=== PATIENT | male | born 1980 | race Two or more races ===

== ENCOUNTER 2018-12-24 03:49 | Inpatient (IN) | payer MEDICAID, OTHER ==
[~2018-12-24] VITALS: Ht 152.4 cm; Wt 74.8 kg
[~2018-12-24 03:49] MED LIST: OMEPRAZOLE
[2018-12-24 04:12] LABS: Basophils # (auto) 0.1 uL; Basophils % (auto) 0.3 % (0.0-2.0); Eosinophils # (auto) 0 uL; Eosinophils % (auto) 0.1 % (0.0-7.0); Hematocrit 50.6 % (41.0-53.0); Hemoglobin 17.2 g/dL (13.5-17.5); Lymphocytes # (auto) 0.9 uL; Lymphocytes % (auto) 5.5 % (10.0-50.0); Mean Corpuscular Volume 88.3 fL (80.0-100.0); Monocytes # (auto) 0.5 uL; Monocytes % (auto) 3.1 % (0.0-12.0); Neutrophils # (auto) 15.2 uL; Platelet Count (auto) 395 10^3/uL (140-450); Red Blood Cells 5.73 10^6/uL (4.5-5.90); Red Cell Distribution Width 13.1 % (11.8-14.3); White Blood Cell 16.7 10^3/uL (4.4-10.8)
[2018-12-24] MEDS ORDERED: SODIUM CHLORIDE 0.9% 1,000 ML IVB ONE (04:26)
[2018-12-24 04:29] LABS: Albumin 4.2 g/dL (3.4-5.0); BUN/Creatinine Ratio 13.1; Calcium 9.1 mg/dL (8.5-10.1)
[2018-12-24] MEDS ORDERED: MORPHINE SULFATE 4 MG/ML SYR/VIAL IV ONE (04:30)
[2018-12-24] MEDS ORDERED: ONDANSETRON HCL 4 MG/2 ML VIAL IV ONE (04:30)
[2018-12-24 04:31] LABS: Bilirubin, Total 0.9 mg/dL (0.2-1.0); Total Protein 8.5 g/dL (6.4-8.2)
[2018-12-24 04:41] LABS: Urine Bacteria NONE SEEN /hpf (None Seen); Urine Blood Negative /uL (Negative); Urine Mucus FEW (None Seen); Urine WBC 38 /hpf (0 - 3)
[2018-12-24 04:44] LABS: Magnesium 2.1 mg/dL (1.6-2.6)
[2018-12-24] MEDS ORDERED: MORPHINE SULFATE 4 MG/ML SYR/VIAL IV PRN (06:45)
[2018-12-24] MEDS ORDERED: cloNIDine HCL 0.1 MG TAB PO PRN (06:45)
[2018-12-24] MEDS ORDERED: ONDANSETRON HCL 4 MG/2 ML VIAL IV PRN (06:45)
[2018-12-24] MEDS: SODIUM CHLORIDE 0.9% 1,000 ML IV SCH ×2 (07:28→21:55)
[2018-12-24] MEDS ORDERED: GASTROGRAFIN 120 ML SOL ONE (08:28)
--- NOTE | 2018-12-24 10:30 | NUR ---
Received patient from ER at 1006. Pt is awake and alert with out distress noted. NG to left nare noted. For safety the bed is locked and in the lowest position with 2 side rails up in position. Pts vitals stable and WNL. Will continue to monitor for any changes in condition
[2018-12-24] MEDS: FAMOTIDINE (10MG/ML) 2ML VL IV SCH (11:11)
[2018-12-24] MEDS: cefTRIAXone 1GM/50ML D5W 50 ML IV SCH (11:11)
[2018-12-24 12:10] VITALS: BP 144/86
[2018-12-24 13:00] VITALS: BP 140/86
[2018-12-24 17:00] VITALS: BP 137/69
--- NOTE | 2018-12-24 17:00 | NUR ---
PT HAS AN ELEVATED FEVER OF 100.3, COOLING MEASURES APPLIED, WILL REASSESS
--- NOTE | 2018-12-24 18:00 | NUR ---
PT FEVER HAS DECREASED TO 99.1 WITH COOLING MEASURES. PT IS COMFORTABLE AND WITH OUT DISTRESS, WILL CONTINUE TO MONITOR
--- NOTE | 2018-12-24 18:48 | NUR ---
NG TO LEFT NARE DRAINING CLEAR FLUID, DRAINED 110 MLS FOR SHIFT.
--- NOTE | 2018-12-24 19:50 | NUR ---
Opening Shift Note Assumed care of patient, awake, AAOx4. No S/S of distress/SOB or pain. NGT to left side on LIS patent. On room air and ambulatory. Bed in lowest locked position, side rails up x2, call light within reach. Patient is currently NPO. Instructed on POC and to call for assist PRN, will continue to monitor for changes Q1hr and PRN.
[2018-12-24 20:00] VITALS: BP 150/75
[2018-12-24 22:00] VITALS: BP_SYST 139; BP_SYST 150; BP_DIAS 42; BP_DIAS 75
[2018-12-25 05:00] VITALS: BP 132/74
[2018-12-25 05:48] LABS: Basophils # (auto) 0.1 uL; Basophils % (auto) 0.6 % (0.0-2.0); Eosinophils # (auto) 0 uL; Eosinophils % (auto) 0.2 % (0.0-7.0); Hematocrit 46.3 % (41.0-53.0); Hemoglobin 15.4 g/dL (13.5-17.5); Lymphocytes # (auto) 1.8 uL; Mean Corpuscular Hemoglobin 29.4 pg (28.0-32.0); Mean Corpuscular Hgb Conc. 33.2 g/dL (32.0-36.0); Mean Corpuscular Volume 88.5 fL (80.0-100.0); Monocytes # (auto) 1.3 uL; Monocytes % (auto) 9.7 % (0.0-12.0); Neutrophils # (auto) 9.9 uL; Neutrophils % (auto) 75.5 % (37.0-80.0); Platelet Count (auto) 340 10^3/uL (140-450); Red Blood Cells 5.23 10^6/uL (4.5-5.90); Red Cell Distribution Width 13.2 % (11.8-14.3); White Blood Cell 13.1 10^3/uL (4.4-10.8)
[2018-12-25 06:07] LABS: Magnesium 2.2 mg/dL (1.6-2.6); Potassium 3.7 mmol/L (3.5-5.1)
[2018-12-25 06:15] LABS: Albumin 3.6 g/dL (3.4-5.0); BUN/Creatinine Ratio 15.4; Bilirubin, Total 0.8 mg/dL (0.2-1.0); Calcium 8.6 mg/dL (8.5-10.1); Total Protein 7.1 g/dL (6.4-8.2)
[2018-12-25] MEDS: SODIUM CHLORIDE 0.9% 1,000 ML IV SCH ×2 (08:00→17:54)
[2018-12-25] MEDS: cefTRIAXone 1GM/50ML D5W 50 ML IV SCH (09:00)
[2018-12-25 09:06] VITALS: BP_SYST 142; BP_SYST 146; BP_DIAS 52; BP_DIAS 89
[2018-12-25] MEDS: FAMOTIDINE (10MG/ML) 2ML VL IV SCH (10:00)
[2018-12-25] MEDS ORDERED: hydrALAZINE HCL 20 MG/ML VL IV PRN (12:30)
[2018-12-25 13:00] VITALS: BP_SYST 115; BP_SYST 135; BP_DIAS 50; BP_DIAS 72
[2018-12-25 17:02] VITALS: BP 140/80
[2018-12-25 20:00] VITALS: BP 134/73
[2018-12-25 21:52] VITALS: BP 139/73
[2018-12-26 05:16] VITALS: BP 141/79
--- NOTE | 2018-12-26 06:43 | NUR ---
PATIENT NGT OUTPUT 375ml. DARK RED FLUID DRAINING. NO C/O PAIN OR DISCOMFORT FROM PATIENT. ABD SOFT AND NON TENDER. BOWEL SOUNDS ARE ACTIVE IN ALL FOUR QUADRANTS. PATIENT REPORTS LOOSE STOOL X1.
--- NOTE | 2018-12-26 07:14 | NUR ---
ENDORSED CARE TO DAYSHIFT REAL KAUFFMAN. PATIENT AAOX4. DISCONNECTED FROM IV AND NGT TO USE RESTROOM. NO ACUTE S/S OF DISTRESS, SOB OR PAIN. BED IN LOWEST LOCKED POSITION, SIDE RAILS UP X2, CALL LIGHT WITHIN REACH.
--- NOTE | 2018-12-26 07:18 | NUR ---
Opening Shift Note Report received from NOC RN and rounding completed. Patient observed awake, alert, sitting up in bed without S/S of distress. Patient is reporting no pain, nausea, or vomiting. NGT still in place in left nare, reported 375 output from second shift supervisor: dark brown in color and MD aware per RN. Patient reports he has been passing gas and had an episode of diarrhea this morning. He stated this episode was loose and similar color to NGT output. Call vidal within reach and understood to call if needing assistance.
[2018-12-26 08:25] VITALS: BP 145/87
[2018-12-26] MEDS: SODIUM CHLORIDE 0.9% 1,000 ML IV SCH ×2 (08:45→13:45)
[2018-12-26 09:00] VITALS: BP 145/87
[2018-12-26] MEDS: FAMOTIDINE (10MG/ML) 2ML VL IV SCH (09:15)
[2018-12-26] MEDS: cefTRIAXone 1GM/50ML D5W 50 ML IV SCH (09:15)
--- NOTE | 2018-12-26 11:49 | NUR ---
Rounded Dr. Quinn at bedside discussed patient's POC in regarding to possible discontinuation of nasogastric tube. Patient passing gas and having diarrhea. MD asked this RN to call Dr. Nieto to confirm okay to clamp or discontinue. Dr. Nieto's office called and spoke to Case who stated she would relay the message.
[2018-12-26 13:00] VITALS: BP 132/66
--- NOTE | 2018-12-26 13:43 | NUR ---
NGT Clamped Dr. Quinn called this RN and stated she spoke to Dr. Nieto who stated to go ahead and clamp NGT, but keep patient NPO. NGT clamped and patient informed of POC.
--- NOTE | 2018-12-26 14:11 | NUR ---
NUTRITION ASSESSMENT NOTES Please refer to link notes of nutrition screen form filed under the intervention section of the plan of care for further details. Est. Needs: 1550 kcal to 1900 kcal (25-30 kcal/kgBW), 61 gms to 76 gms pro (0.8-1.0 gms/kgBW). Will continue to monitor pertinent labs and reassess nutrient need prn Thank you. Addendum: 12/26/18 at [address] Amended: Links added.
[2018-12-26 17:19] VITALS: BP 135/61
--- NOTE | 2018-12-26 18:15 | NUR ---
Gerson rounded Dr. Nieto rounded on patient and stated to keep the NGT in over night clamped and still NPO. Patient verbalized understanding.
--- NOTE | 2018-12-26 20:00 | NUR ---
RECEIVE AMBULATING IN ROOM AND MAE NG TUBE IN LEFT NARES IS CLAMPED
[2018-12-26 21:00] VITALS: BP_SYST 141; BP_SYST 159; BP_DIAS 67; BP_DIAS 79
[2018-12-27] MEDS: SODIUM CHLORIDE 0.9% 1,000 ML IV SCH ×3 (02:32→23:00)
[2018-12-27 04:30] VITALS: BP 143/83
[2018-12-27 05:45] LABS: Basophils # (auto) 0 uL; Basophils % (auto) 0.3 % (0.0-2.0); Eosinophils # (auto) 0.1 uL; Eosinophils % (auto) 0.4 % (0.0-7.0); Hematocrit 46.5 % (41.0-53.0); Hemoglobin 15.6 g/dL (13.5-17.5); Lymphocytes # (auto) 1.4 uL; Lymphocytes % (auto) 9.3 % (10.0-50.0); Mean Corpuscular Hgb Conc. 33.6 g/dL (32.0-36.0); Mean Corpuscular Volume 89.3 fL (80.0-100.0); Monocytes # (auto) 1.6 uL; Monocytes % (auto) 10.5 % (0.0-12.0); Neutrophils % (auto) 79.5 % (37.0-80.0); Platelet Count (auto) 327 10^3/uL (140-450); Red Blood Cells 5.21 10^6/uL (4.5-5.90); Red Cell Distribution Width 13.3 % (11.8-14.3); White Blood Cell 15.1 10^3/uL (4.4-10.8)
[2018-12-27 06:15] LABS: BUN/Creatinine Ratio 20.6; Calcium 8.5 mg/dL (8.5-10.1); Potassium 3.7 mmol/L (3.5-5.1)
--- NOTE | 2018-12-27 07:30 | NUR ---
Opening Shift Note Assumed care of patient, awake and alert. No S/S of distress/SOB or pain on room air. Instructed on POC and to call for assist PRN, will continue to monitor for changes Q1hr and PRN. Bed in low and locked position, rails up x2, no-slip socks on. NGT to left nare clamped per MD order.
[2018-12-27 09:00] VITALS: BP 139/69
[2018-12-27] MEDS: cefTRIAXone 1GM/50ML D5W 50 ML IV SCH (09:17)
[2018-12-27] MEDS: FAMOTIDINE (10MG/ML) 2ML VL IV SCH (09:17)
--- NOTE | 2018-12-27 11:20 | NUR ---
DR RODRIGUEZ AT BEDSIDE NEW ORDERS ADDED TO REMOVE NG TUBE, ADVANCE DIET TO CLEAR LIQUID TOLERATED.
--- NOTE | 2018-12-27 11:22 | NUR ---
NGT REMOVAL PATIENT TOLERATED IT WELL, TUBE REMOVED AND PATIENT HAD SMALL BRIGHT RED MUCUS WHEN BLOWING NOSE. INFORMED TO NOTIFY NURSE IF NOSE BLEED OCCURS AND INSTRUCTED NOT TO BLOW NOSE AGGRESSIVELY. EMESIS BASIN AND TISSUES PROVIDED, WATER PROVIDED AT BEDSIDE.
[2018-12-27 13:00] VITALS: BP 135/74
[2018-12-27 17:00] VITALS: BP 128/81
--- NOTE | 2018-12-27 18:20 | NUR ---
TOLERATING CLEAR LIQUIDS PATIENT FAMILY AT BEDSIDE, PATIENT DENIES PAIN, NAUSEA OR VOMITING AT THIS TIME.
--- NOTE | 2018-12-27 19:00 | NUR ---
Opening Shift Note Assumed care of patient, awake and alert.Family on bedside. No S/S of distress/SOB or pain. Instructed on POC and to call for assist PRN, will continue to monitor for changes Q1hr and PRN.
[2018-12-27 22:00] VITALS: BP 130/84
[2018-12-28] MEDS: SODIUM CHLORIDE 0.9% 1,000 ML IV SCH ×3 (04:00→14:12)
[2018-12-28 04:53] VITALS: BP 130/70
[2018-12-28 05:25] LABS: Basophils # (auto) 0.1 uL; Basophils % (auto) 0.7 % (0.0-2.0); Eosinophils # (auto) 0.2 uL; Eosinophils % (auto) 2.1 % (0.0-7.0); Hematocrit 43.8 % (41.0-53.0); Hemoglobin 15.1 g/dL (13.5-17.5); Lymphocytes % (auto) 19.3 % (10.0-50.0); Mean Corpuscular Hemoglobin 30.6 pg (28.0-32.0); Mean Corpuscular Hgb Conc. 34.5 g/dL (32.0-36.0); Mean Corpuscular Volume 88.6 fL (80.0-100.0); Monocytes # (auto) 1.1 uL; Neutrophils # (auto) 6.8 uL; Neutrophils % (auto) 66.9 % (37.0-80.0); Platelet Count (auto) 316 10^3/uL (140-450); Red Blood Cells 4.94 10^6/uL (4.5-5.90); Red Cell Distribution Width 12.5 % (11.8-14.3); White Blood Cell 10.2 10^3/uL (4.4-10.8)
[2018-12-28 05:47] LABS: Albumin 3.1 g/dL (3.4-5.0); Calcium 8.5 mg/dL (8.5-10.1); Magnesium 2.2 mg/dL (1.6-2.6); Potassium 3.7 mmol/L (3.5-5.1)
[2018-12-28 05:51] LABS: BUN/Creatinine Ratio 15.9; Phosphorus 3.1 mg/dL (2.5-4.90); Total Protein 6.7 g/dL (6.4-8.2)
--- NOTE | 2018-12-28 07:30 | NUR ---
Opening Shift Note Assumed care of patient, awake and alert. No S/S of distress/SOB or pain on room air. Instructed on POC and to call for assist PRN, will continue to monitor for changes Q1hr and PRN. Bed in low and locked position, rails up x2, no-slip socks on. No new complaints overnight.
[2018-12-28 09:00] VITALS: BP 134/74
[2018-12-28] MEDS: cefTRIAXone 1GM/50ML D5W 50 ML IV SCH (09:46)
[2018-12-28] MEDS: FAMOTIDINE (10MG/ML) 2ML VL IV SCH (09:46)
--- NOTE | 2018-12-28 12:30 | NUR ---
ADVANCED DIET SPOKE TO DR RODRIGUEZ AT NURSES STATION, UPDATED ON PATIENTS CONDITION AND ABILITY TO TOLERATE CLEAR LIQUID DIET. ORDERS TO ADVANCE TO SOFT DIET AND ANTICIPATE DISCHARGE TODAY IF ABLE TO TOLERATE.
[2018-12-28 12:57] VITALS: BP 139/88
[2018-12-28] MEDS ORDERED: CEPH-37 PO (14:42)
[2018-12-28] MEDS ORDERED: PANT40TA2 PO (14:42)
[2018-12-28] MEDS ORDERED: DOCU-94 PO (14:42)
[2018-12-28 14:51] VITALS: BP 139/80
--- NOTE | 2018-12-28 15:30 | NUR ---
CALLED IN PRESCRIPTIONS TO PREFERRED [facility]ARMAC[facility], CALLED IN PRESCRIPTIONS THAT WERE UNABLE TO SEND TO THE CORRECT PHARMACY VIA ELECTRONIC PRESCRIPTIONS. SPOKE TO DAVID, PHARMACIST.
--- NOTE | 2018-12-28 15:55 | NUR ---
DISCHARGE Discharge instructions given as ordered. Encourage to follow up with PMD as instructed. All questions and concerns addressed. Patient verbalized understanding. Medication reconciliation form completed and copy given to patient. personal belongings held in safe returned to patient. IV removed with catheter intact, pressure dressing applied. Patient taken to vehicle via wheelchair with all personal belongings, accompanied by staff and family member. No distress noted at time of departure.
== END 2018-12-28 15:55 | disposition home or self-care (01) | DRG 247 ==
LOC: ER 03:49 → OVERFLOW 03:50 → WEST WING 10:07
PROVIDERS: ADMIT Nurse Practitioner; ATTEND Internal Medicine
PROC: 0D9670Z Drainage of Stomach with Drainage Device, Via Natural or Artificial Opening (ICD-10-PCS; principal; 2018-12-24)
DX: K56.609 Unspecified intestinal obstruction, unspecified as to partial versus complete obstruction (principal); E44.1 Mild protein-calorie malnutrition; N39.0 Urinary tract infection, site not specified; E66.9 Obesity, unspecified; I10 Essential (primary) hypertension; Z88.8 Allergy status to other drugs, medicaments and biological substances; Z90.49 Acquired absence of other specified parts of digestive tract; Z68.32 Body mass index [BMI] 32.0-32.9, adult; Z79.899 Other long term (current) drug therapy
CPT/HCPCS: 36415; 71045; 74176; 74250; 80048; 80053; 80061; 81001; 82150; 83036; 83690; 83735; 84100; 85025; 87040; 87086; G0378; J0696; J2405; J3490